=== PATIENT | female | born 1975 | race Asian ===

== ENCOUNTER 2024-03-31 04:37 | Day surgery (SDC) | payer OTHER ==
[2024-03-30 10:19] VITALS: BMI 35.5
[2024-03-31] MEDS ORDERED: LIDOCAINE HCL 1%, 10 MG/ML (20ML VIAL) ONE (14:03)
[2024-03-31] MEDS ORDERED: LIDOCAINE HCL 2% JELLY 11 ML TP ONE (14:03)
[2024-03-31] MEDS ORDERED: LIDOCAINE HCL/PF 2% SDV 5ML VIAL ONE (14:14)
[2024-03-31] MEDS ORDERED: PROPOFOL 20 ML ONE ×2 (14:15→14:33)
[2024-03-31] MEDS ORDERED: MIDAZOLAM HCL 2 MG/2 ML SINGLE DOSE VIAL ONE (14:15)
[2024-03-31] MEDS ORDERED: KETOROLAC TROMETHAMINE 30 MG/1 ML VIAL ONE (14:30)
[2024-03-31] MEDS ORDERED: ONDANSETRON 4 MG/2 ML VIAL ONE (14:30)
[2024-03-31] MEDS: ceFAZolin SODIUM 1 GM VIAL IVPB ONE (14:30)
[2024-03-31] MEDS ORDERED: DEXAMETHASONE SOD PHOSPHATE 4 MG/1 ML VIAL ONE (14:30)
[2024-03-31] MEDS ORDERED: ceFAZolin SODIUM 1 GM VIAL ONE (14:30)
[2024-03-31 15:16] VITALS: RESP 18; TEMP 97.5
[2024-03-31 16:45] VITALS: BP 113/60; PULSE 70
== END 2024-03-31 16:15 | disposition home or self-care (01) ==
LOC: JASU-SURG 04:37
PROVIDERS: ATTEND Urology
PROC: 0TVD8ZZ Restriction of Urethra, Via Natural or Artificial Opening Endoscopic (ICD-10-PCS; principal; 2024-03-31 14:00)
DX: N36.42 Intrinsic sphincter deficiency (ISD) (principal); N39.3 Stress incontinence (female) (male)
CPT/HCPCS: 51715; L8606; 81025

== ENCOUNTER 2024-09-22 05:31 | Day surgery (SDC) | payer OTHER ==
[2024-09-22] MEDS ORDERED: PROPOFOL 20 ML ONE (07:47)
[2024-09-22] MEDS ORDERED: MIDAZOLAM HCL 2 MG/2 ML SINGLE DOSE VIAL ONE (07:47)
[2024-09-22] MEDS ORDERED: LIDOCAINE HCL/PF 2% SDV 5ML VIAL ONE (07:47)
[2024-09-22] MEDS ORDERED: PROMETHAZINE HCL 25 MG/1 ML VIAL IVPB PRN (08:21)
[2024-09-22] MEDS ORDERED: oxyCODONE HCL 5 MG TABLET PO PRN (08:21)
[2024-09-22] MEDS ORDERED: ONDANSETRON 4 MG/2 ML VIAL IVPUSH PRN (08:21)
[2024-09-22] MEDS: ceFAZolin SODIUM 1 GM VIAL IVPB ONE (08:33)
[2024-09-22] MEDS ORDERED: DEXAMETHASONE SOD PHOSPHATE 4 MG/1 ML VIAL ONE (08:34)
[2024-09-22] MEDS ORDERED: ceFAZolin SODIUM 1 GM VIAL ONE (08:34)
[2024-09-22] MEDS ORDERED: KETOROLAC TROMETHAMINE 30 MG/1 ML VIAL ONE (08:45)
[2024-09-22] MEDS ORDERED: ACETAMINOPHEN INJECTION 100 ML ONE (10:58)
[2024-09-22] MEDS: ACETAMINOPHEN 1000 MG/100 ML BAG IVPB ONE (11:06)
[2024-09-22 15:30] VITALS: BMI 37.5
[2024-09-22] MEDS: CEFTRIAXONE 1 G/50 ML PREMIX 50 ML IVPB SCH (15:41)
[2024-09-22] MEDS: LACTATED RINGERS SOLUTION 1,000 ML IV SCH (15:52)
[2024-09-22] MEDS: ACETAMINOPHEN 1000 MG/100 ML BAG IVPB PRN (18:33)
[2024-09-22] MEDS: ONDANSETRON 4 MG/2 ML VIAL IVPUSH PRN (18:34)
[2024-09-23] MEDS: oxyCODONE HCL 5 MG TABLET PO PRN (03:46)
[2024-09-23 07:10] VITALS: RESP 18; TEMP 98.1
[2024-09-23 10:13] LABS: BASO % 0.2 % (0-2.0); EOS % 0.4 % (0-4.5); HEMATOCRIT 38.3 % (32.4-45.2); HEMOGLOBIN 12.4 GM/dL (10.7-15.3); LYMPH % 16.7 % (8-40); MCHC 32.4 g/dl (32.0-36.0); MEAN CELL VOLUME 83.3 fl (80-96); MEAN PLT VOLUME 8.7 fl (7.5-11.1); MONO % 4.6 % (3.8-10.2); NEUT % 78.1 % (42.8-82.8); PLATELET COUNT 246 10^3/uL (134-434); RBC 4.59 M/mm3 (3.60-5.2); RDW 14.9 % (11.6-15.6); WHITE BLOOD COUNT 12.6 K/mm3 (4.0-10.0)
[2024-09-23 12:06] LABS: POTASSIUM 3.5 mmol/L (3.5-5.1)
[2024-09-23 12:20] LABS: BASO % 0.2 % (0-2.0); EOS % 0.6 % (0-4.5); HEMATOCRIT 39.8 % (32.4-45.2); HEMOGLOBIN 13.1 GM/dL (10.7-15.3); LYMPH % 16.3 % (8-40); MCH 27.3 pg (25.7-33.7); MCHC 32.9 g/dl (32.0-36.0); MEAN CELL VOLUME 82.9 fl (80-96); MONO % 9.4 % (3.8-10.2); NEUT % 73.5 % (42.8-82.8); PLATELET COUNT 256 10^3/uL (134-434); RDW 15.1 % (11.6-15.6); WHITE BLOOD COUNT 14.3 K/mm3 (4.0-10.0)
[2024-09-23 12:23] LABS: ALBUMIN 3.2 g/dl (3.4-5.0); BLOOD UREA NITROGEN 13.1 mg/dL (7-18)
[2024-09-23 12:24] LABS: CALCIUM 9.1 mg/dL (8.5-10.1)
[2024-09-23 12:27] LABS: CREATININE 0.8 mg/dL (0.55-1.3)
[2024-09-23 12:28] LABS: BILIRUBIN,TOTAL 0.3 mg/dL (0.2-1)
[2024-09-23 12:29] LABS: TOT PROT 6.3 g/dl (6.4-8.2)
[2024-09-23 13:51] VITALS: BP 120/81; PULSE 85
[2024-09-24] MEDS ORDERED: TAMSULOSIN HCL 0.4 MG CAP PO SCH (08:30)
[2024-10-01 21:06] LABS: CA OXALATE MONOHYDR. 90 % (.); SIZE 3x3 mm (.); WEIGHT 36 mg (.)
== END 2024-09-23 16:35 | disposition home or self-care (01) ==
LOC: JASU-SURG 05:31 → UNDOADMIN 12:57 → J2C 12:57 → J7W 15:26 → J2C 15:26 → J7W 09-23 08:49 → JASU-SURG 09-23 16:35
PROVIDERS: ATTEND Urology
PROC: 0T768DZ Dilation of Right Ureter with Intraluminal Device, Via Natural or Artificial Opening Endoscopic (ICD-10-PCS; 2024-09-22)
PROC: 0TC68ZZ Extirpation of Matter from Right Ureter, Via Natural or Artificial Opening Endoscopic (ICD-10-PCS; principal; 2024-09-22 09:30)
DX: N13.2 Hydronephrosis with renal and ureteral calculous obstruction (principal); T19.8XXA Foreign body in other parts of genitourinary tract, initial encounter; T81.598A Other complications of foreign body accidentally left in body following other procedure, initial encounter; W44.8XXA Other foreign body entering into or through a natural orifice, initial encounter
CPT/HCPCS: 36415; 76000-TC-FY; 76775-TC; 80048; 80053; 81025; 82360; 85025; 94760; C1758; C1769; C2617; J0131